=== PATIENT | female | born 1940 | race Caucasian/White ===

== ENCOUNTER → 2021-04-18 08:52 | Outpatient (CLI) | payer MEDICARE, MEDICAID, SELFPAY ==
[2021-04-18 13:35] LABS: COVID19 -Nasal RAPID Negative (Negative)
== END ==
PROVIDERS: Visit Provider Physician Assistant
DX: Z20.822 Contact with and (suspected) exposure to COVID-19 (principal); Z01.812 Encounter for preprocedural laboratory examination
CPT/HCPCS: 87635; C9803

== ENCOUNTER 2021-04-20 08:20 | Day surgery (SDC) | payer MEDICARE, SELFPAY ==
[2021-04-20] VITALS (8 sets, daily range): BP systolic 140–161; BP diastolic 65–74; PULSE 57–77; RESP 12–16; TEMP 36.3–36.7; O2SAT 94–100; BMI 23.3
--- NOTE | 2021-04-20 | PATH_ITS ---
[facility] Accession Number: [id number] . 01 Material submitted: . PART A: duodenum - DUODENUM PART B: gastrointestinal site - GASTRIC PART C: esophagus - ESOPHAGUS . 01 Clinical history: . A: R/O CELIAC B: R/O H PYLORI C: R/O EOE . 02 Diagnosis: A. Duodenum, Biopsy: Duodenal mucosa with no diagnostic abnormality. Negative for active inflammation, features of sprue, dysplasia, or malignancy. . B. Stomach, Biopsies: Antral and body-type mucosa with no diagnostic abnormality. Negative for Helicobacter by immunohistochemistry. Negative for intestinal metaplasia. Negative for dysplasia and malignancy. . C. Esophagus, Biopsy: Squamous epithelium with no diagnostic abnormality. Intraepithelial eosinophils are not increased. Negative for dysplasia and malignancy. [facility] 04/26/2021 1323 Local . 02 Electronically signed: . Alicia Tomlin MD, Pathologist NPI- [id number] . 01 Gross description: . Part A: DUODENUM: Received in formalin is 1 fragment(s) of herbert, soft tissue measuring 0.4 x 0.2 x 0.2 cm submitted entirely in 1 cassette(s) Part B: GASTRIC: Received in formalin are 2 fragment(s) of herbert, soft tissue measuring 0.7 x 0.2 x 0.1 cm to 0.3 x 0.2 x 0.1 cm submitted entirely in 1 cassette(s) Part C: ESOPHAGUS: Received in formalin are 4 fragment(s) of herbert, soft tissue measuring 0.4 x 0.3 x 0.1 cm to 0.2 x 0.2 x 0.1 cm submitted entirely in 1 cassette(s) /ROXI 04/21/2021 0456 Local . 02 Microscopic: . B. An immunohistochemical stain was performed to evaluate for Helicobacter organisms and is negative. The control stain showed appropriate reactivity. . * This test was developed and its performance characteristics determined by [facility]. It has not been cleared or approved by the U.S. Food and Drug Administration. The FDA has determined that such clearance or approval is not necessary. This test is used for clinical purposes. It should not be regarded as investigational or for research. . 02 Pathologist provided ICD-10: R13.10, R11.2 . 02 CPT . 504680, 286135, 257594, [id number] Performed at: 01 [facility] [address] [place] [address], [place], [place] [id number] MD Devan Bryson MD Phone: [phone] Performed at: 02 [facility] [address] [place] [id number] MD Alicia Tomlin MD Phone: [phone]
--- NOTE | 2021-04-20 08:58 | PM.PREOP ---
Pre-operative Note Interval Note History & Physical reviewed/Exam performed by Physician: Yes Changes to H&P: No ASA Class (for procedural sedation): II
--- NOTE | 2021-04-20 08:58 | PM.OP.ENDO ---
Operative Date/Time/Diagnoses Date of procedure: 04/20/21 Pre-op diagnosis: See indication and findings Procedure & Clinicians Study performed: EGD Indications: Nausea and dysphagia and epigastric pain Surgeon: Brenda Lewis Procedure Notes Procedure in detail: After informed consent was obtained the patient was placed in left lateral decubitus position. The video upper scope was placed into the oropharynx and with the patient's help swelled into the esophagus with the esophagus stomach and duodenum were carefully examined. On withdrawal retroflexed view the GE junction was performed. The scope was removed. The patient of the procedure well. Blood loss none Complications none Sedation mac Findings 1. Large amount of thick secretions in the hypopharynx and upper esophagus. 2. Possible esophageal dysmotility but no obvious erosions or ulcerations or Villalobos's esophagus. Biopsies taken to rule out eosinophilic esophagitis 3. Patchy gastric erythema in the mid stomach with pre-pyloric erosions, small. Biopsies taken to rule out Helicobacter 4. Erosions in the distal bulb 1 of which was almost large enough and even of colon ulceration. 5. Normal sweep. Biopsies taken to rule out celiac Merely await biopsies here and get back to Concha about next steps
[2021-04-20] MEDS: SODIUM CHLORIDE 0.9% 1,000 ML 100 ML IV (09:01)
== END 2021-04-20 10:20 | disposition home or self-care (01) ==
PROVIDERS: PCP Internal Medicine; Referring Provider Internal Medicine Gastroenterology; Visit Provider Internal Medicine Gastroenterology
PROC: 0DJ08ZZ Inspection of Upper Intestinal Tract, Via Natural or Artificial Opening Endoscopic (ICD-10-PCS; CPT 43235; principal; 2021-04-20 09:30)
DX: K25.9 Gastric ulcer, unspecified as acute or chronic, without hemorrhage or perforation (principal)
CPT/HCPCS: 43239